=== PATIENT | male | born 1990 | race Two or more races ===

== ENCOUNTER 2023-08-18 18:30 | Emergency (ER) | payer OTHER ==
[~2023-08-18] VITALS: Ht 182.9 cm; Wt 79.8 kg
[2023-08-18 18:34] VITALS: BP 152/96; TEMP 97.8; O2SAT 98
== END 2023-08-18 19:04 | disposition left against medical advice (07) ==
LOC: ER 18:31
DX: F11.90 Opioid use, unspecified, uncomplicated (principal)